=== PATIENT | male | born 2000 | race Caucasian/White ===

== ENCOUNTER → 2022-06-29 07:59 | Outpatient (CLI) | payer OTHER ==
[~2022-06-29 07:59] MED LIST: IBUPROFEN200 MG PO; [UNRECOGNIZED DRUG - REMARK]
== END | disposition home or self-care (01) ==
LOC: LAB 07:59
PROVIDERS: ATTEND Obstetrics & Gynecology
DX: Z20.828 Contact with and (suspected) exposure to other viral communicable diseases (principal); Z20.818 Contact with and (suspected) exposure to other bacterial communicable diseases